=== PATIENT | male | born 1995 | race Native Hawaiian/Other Pacific Islander ===

== ENCOUNTER 2017-06-06 01:16 | Emergency (ER) | payer OTHER ==
[2017-06-06 01:19] VITALS: BP 157/74; PULSE 71; RESP 16; TEMP 98; O2SAT 99
[2017-06-06] MEDS ORDERED: ATEN100T PO (01:55)
--- NOTE | 2017-06-06 02:22 | RADRPT ---
EXAM DATE/TIME: 06/06/2017 02:01 [place] COMPARISON: No previous studies available for comparison. INDICATIONS : Chest pain with nausea. MEDICAL HISTORY : None. SURGICAL HISTORY : Pulmonary artery banding, closure of VSD ENCOUNTER: Initial ACUITY: 1 day PAIN SCORE: 7/10 LOCATION: Bilateral chest FINDINGS: A single view of the chest demonstrates the lungs to be symmetrically aerated without evidence of mas s, or effusion. There is a small faint infiltrate in the right lower lobe. The cardiomediastinal cont ours are unremarkable. Osseous structures are intact. Numerous sternal wires at least 3 of which are fractured CONCLUSION: Small 2 cm area of infiltrate in the right lower lung field possible right lower lobe. A few fractur ed sternal wires. Matthew Cheng MD on June 06, 2017 at 2:20 Board Certified Radiologist. This report was verified electronically.
[2017-06-06 02:35] LABS: AUTOMATED NEUTROPHIL # 3.3 TH/MM3 (1.8-7.7); BASOPHIL # 0.1 TH/MM3 (0-0.2); EOSINOPHIL # 0.5 TH/MM3 (0-0.4); EOSINOPHIL % 7.7 % (0.0-4.0); HEMATOCRIT 41.9 % (39.0-51.0); HEMO FLAGS DIFF FINAL; LYMPH % 31.5 % (9.0-44.0); MEAN CELL VOLUME 81.3 FL (80.0-100.0); MEAN CORPUSCULAR HEMOGLOBIN 27.5 PG (27.0-34.0); MEAN CORPUSCULAR HGB CONC 33.8 % (32.0-36.0); MONO % 8.1 % (0.0-8.0); NEUT % 51.7 % (16.0-70.0); PLATELET COUNT 175 TH/MM3 (150-450); RED BLOOD COUNT 5.15 MIL/MM3 (4.50-5.90); WHITE BLOOD COUNT 6.3 TH/MM3 (4.0-11.0)
[2017-06-06 02:42] LABS: BLOOD, URINE NEG (NEG); GLUCOSE,URINE NEG (NEG); KETONE, URINE NEG (NEG); NITRITE,URINE NEG (NEG); SQUAMOUS EPITHELIAL CELL URINE <1 /hpf (0-5); URINE COLOR YELLOW (YELLW/STRAW)
[2017-06-06 02:43] LABS: COMMENT (UR) CULT NOT INDICATED; CULTURE IF INDICATED CULT NOT INDICATED
--- NOTE | 2017-06-06 02:56 | PD ---
HPI Chief Complaint: GI Complaint Time Seen by Provider: 01:54 Travel History International Travel<30 days: No Contact w/Intl Traveler<30days: No Traveled to known affect area: No History of Present Illness HPI The patient is a 21 year old female who presents to the [facility] emergency department with a history of nausea and vomiting that began approximately one hour prior to arrival. The patient incidentally reports that he has also had over the last 3 days the pain near the right side of his nose when he breathes deeply. He denies having any nasal discharge, fever, postnasal drip, sore throat, cough, or congestion. The patient also incidentally reports that over the last year approximately one time per week for a few hours will have left flank pain. He reports that his urine has appeared to be dark. He denies having any dysuria, urinary frequency, urinary urgency, or hematuria. On review of systems otherwise, the patient denies any neck pain, chest pain, shortness of breath, diarrhea, or neurologic symptoms. The patient reports that he last moved his bowels earlier this evening. He denies having any blood in his stool or black or tarry stools. 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 He has had multiple cardiac surgeries to correct his congenital defects. Cardiovascular Problems: Yes Medical other: Yes Immunizations Current: Yes Past Surgical History Narrative Surgical The patient's past surgical history is significant for multiple cardiac surgeries for repair of congenital defects. Cardiac Surgery: Yes (ventricular septal defect, coarctation of aoarta, subaortic stenosis,) Thoracic Surgery: Yes (resection of subaortic stenosis, aortic valve commissurotomy patch enlargem) Other Surgery: Yes (pulmonary arterial banding, closure of VSD, gor-tyson patch coarctation) Social History Alcohol Use: No Tobacco Use: Yes (5 cigarettes per day) Substance Use: No Allergies-Medications (Allergen,Severity, Reaction): Coded Allergies: No Known Allergies (Unverified , 06/06/17) Reported Meds & Prescriptions Reported Meds & Active Scripts Active Reported Atenolol 100 Mg Tab 100 Mg PO DAILY Review of Systems Except as stated in HPI: all other systems reviewed are Neg General / Constitutional: No: Fever Eyes: No: Visual changes HENT: No: Headaches, Congestion Cardiovascular: No: Chest Pain or Discomfort Respiratory: No: Cough, Shortness of Breath Gastrointestinal: Positive: Nausea, Vomiting, No: Diarrhea, Abdominal Pain, Hematochezia, Constipation, Changes in Bowel Habits, Indigestion, Loss of Appetite Genitourinary: Positive: Flank Pain (left flank pain), Other (dark urine), No : Urgency, Frequency, Dysuria Musculoskeletal: No: Pain Skin: No Rash Neurologic: No: Weakness Psychiatric: No: Depression Endocrine: No: Polydipsia Hematologic/Lymphatic: No: Easy Bruising Physical Exam Narrative General: The patient is a well-developed well-nourished male in no acute distress. Head and Neck exam: Head is normocephalic atraumatic. Eyes: EOMI, pupils are equal round and reactive to light. Nose: Midline septum with pink mucous membranes Mouth: Dentition unremarkable. Moist mucus membranes. Posterior oropharynx is not erythematous. No tonsillar hypertrophy. Uvula midline. Airway patent. Neck: No palpable lymphadenopathy. No nuchal rigidity. No thyromegaly. Cardiovascular: Regular rate and rhythm without murmurs, gallops, or rubs. No pulse deficit to the extremities on simultaneous auscultation and palpation of his radial artery. Lungs: Clear to auscultation bilaterally. No wheezes, rhonchi, or rales. Abdomen: Soft, with reported tenderness on palpation along the suprapubic area, no other tenderness on palpation of the other quadrants of the abdomen. No guarding, rebound, or rigidity. Negative [place] sign. Normal bowel sounds are audible. No tenderness on palpation of McBurney's point. Extremities: No clubbing, cyanosis, or edema. 2+ pulses in all 4 extremities. No calf tenderness on palpation. Back: No spinous process tenderness to palpation. No costovertebral angle tenderness to palpation. Neurologic Exam: Grossly nonfocal. Skin Exam: No rash noted. Intact skin that is warm and dry. Data Data Last Documented VS Vital Signs Date Time Temp Pulse Resp B/P Pulse Ox O2 Delivery O2 Flow Rate FiO2 06/06/17 01:19 98.0 71 16 157/74 99 Room Air Orders Electrocardiogram (06/06/17 01:25) Complete Blood Count With Diff (06/06/17 02:06) Comprehensive Metabolic Panel (06/06/17 02:06) Lipase (06/06/17 02:06) Urinalysis - C+S If Indicated (06/06/17 02:06) Chest, Single Ap (06/06/17 02:06) Iv Access Insert/Monitor (06/06/17 02:06) Ecg Monitoring (06/06/17 02:06) Oximetry (06/06/17 02:06) Magnesium (Mg) (06/06/17 02:07) Sodium Chlorid 0.9% 500 Ml Inj (Ns 500 M (06/06/17 03:45) Ondansetron Inj (Zofran Inj) (06/06/17 03:45) Oral Rehydration (06/06/17 03:38) Labs Laboratory Tests Test 06/06/17 06/06/17 02:20 02:30 White Blood Count 6.3 TH/MM3 Red Blood Count 5.15 MIL/MM3 Hemoglobin 14.1 GM/DL Hematocrit 41.9 % Mean Corpuscular Volume 81.3 FL Mean Corpuscular Hemoglobin 27.5 PG Mean Corpuscular Hemoglobin 33.8 % Concent Red Cell Distribution Width 13.0 % Platelet Count 175 TH/MM3 Mean Platelet Volume 8.8 FL Neutrophils (%) (Auto) 51.7 % Lymphocytes (%) (Auto) 31.5 % Monocytes (%) (Auto) 8.1 % Eosinophils (%) (Auto) 7.7 % Basophils (%) (Auto) 1.0 % Neutrophils # (Auto) 3.3 TH/MM3 Lymphocytes # (Auto) 2.0 TH/MM3 Monocytes # (Auto) 0.5 TH/MM3 Eosinophils # (Auto) 0.5 TH/MM3 Basophils # (Auto) 0.1 TH/MM3 CBC Comment DIFF FINAL Differential Comment Sodium Level 141 MEQ/L Potassium Level 4.1 MEQ/L Chloride Level 106 MEQ/L Carbon Dioxide Level 29.4 MEQ/L Anion Gap 6 MEQ/L Blood Urea Nitrogen 13 MG/DL Creatinine 0.61 MG/DL Estimat Glomerular Filtration 167 ML/MIN Rate Random Glucose 81 MG/DL Calcium Level 8.3 MG/DL Magnesium Level 1.8 MG/DL Total Bilirubin 0.4 MG/DL Aspartate Amino Transf 14 U/L (AST/SGOT) Alanine Aminotransferase 16 U/L (ALT/SGPT) Alkaline Phosphatase 45 U/L Total Protein 6.4 GM/DL Albumin 3.4 GM/DL Lipase 193 U/L Urine Color YELLOW Urine Turbidity CLEAR Urine pH 6.0 Urine Specific [place] 1.014 Urine Protein NEG mg/dL Urine Glucose (UA) NEG mg/dL Urine Ketones NEG mg/dL Urine Occult Blood NEG Urine Nitrite NEG Urine Bilirubin NEG Urine Urobilinogen LESS THAN 2.0 MG/DL Urine Leukocyte Esterase NEG Urine RBC LESS THAN 1 /hpf Urine WBC 1 /hpf Urine Squamous Epithelial <1 /hpf Cells Microscopic Urinalysis Comment CULT NOT INDICATED MDM Medical Decision Making Medical Screen Exam Complete: Yes Emergency Medical Condition: Yes Medical Record Reviewed: Yes Interpretation(s) Last Impressions Chest X-Ray 06/06/17 0206 Signed Impressions: Service Date/Time: Tuesday, June 06, 2017 02:01 - CONCLUSION: Small 2 cm area of infiltrate in the right lower lung field possible right lower lobe. A few fractured sternal wires. Matthew Cheng MD Differential Diagnosis Viral syndrome, versus gastroenteritis, versus electrolyte derangements, versus dehydration, versus urinary tract infection Narrative Course During the course of the patients emergency department visit, the patients history, examination, and differential diagnosis were reviewed with the patient. The patient had IV access obtained and blood work sent for analysis. The patient was placed on a monitor and storage bin tender with oximetry and blood pressure monitoring. The patient was initially provided normal saline IV fluids, Zofran 4 mg IV for nausea. The patients laboratory studies were reviewed and remarkable for a white count of 6.3, hemoglobin 14.1, platelets and 75 with 8.1 monocytes, CMP is remarkable for calcium of 8.3, magnesium 1.8, AST 14, lipase 193 Radiology studies were reviewed and remarkable for a chest x-ray that shows small 2 cm area of infiltrate in the right lower lung field, possibly the right lower lobe, a few fractured sternal wires. The patient will be discharged home with a prescription for antibiotic, nausea medication. The patient is resting comfortably and feels better, is alert and in no distress. The patients results and examination findings were discussed with the patient. The repeat examination is unremarkable and benign. The history, exam, diagnostic testing, and current condition do not suggest any significant pathology to warrant further testing, continued ED treatment, admission, or surgical evaluation at this point. The vital signs have been stable. The patient does not have uncontrollable pain, intractable vomiting, or other significant symptoms. The patient's condition is stable and appropriate for discharge. The patient will pursue further outpatient evaluation with a primary care physician or other designated or consulting physician as indicated in the discharge instructions. The patient expressed understanding and was agreeable with this plan. Diagnosis Primary Impression: Lung infiltrate Additional Impression: Vomiting Qualified Code: R11.2 - Non-intractable vomiting with nausea, unspecified vomiting type Referrals: Primary Care Physician 2 days Patient Instructions: Acute Nausea and Vomiting (ED), Bacterial Pneumonia (ED) , General Instructions Med/Other Pt SpecificInfo: Prescription(s) given Scripts Promethazine (Phenergan)25 Mg [id number] Mg PO Q8HR PRN (NAUSEA OR VOMITING) #7 TAB Ref 0 Prov:Lyssa Cedeno MD 06/06/17 Azithromycin 250 Mg [id number] Mg PO DIRECTED #6 TAB Ref 0 Take 2 tabs (500 mg) on day 1 then 1 tab daily x 4 days. Prov:Lyssa Cedeno MD 06/06/17 Disposition: 01 DISCHARGE HOME Condition: Stable Lyssa Cedeno MD Jun 06, 2017 02:56
[2017-06-06 02:57] LABS: ALT (GPT) 16 U/L (12-78); ANION GAP 6 MEQ/L (5-15); AST (GOT) 14 U/L (15-37); BICARBONATE 29.4 MEQ/L (21.0-32.0); BLOOD UREA NITROGEN 13 MG/DL (7-18); CHLORIDE 106 MEQ/L (98-107); GLOMERULAR FILTRATION RATE 167 ML/MIN (>89); POTASSIUM 4.1 MEQ/L (3.5-5.1); SODIUM (NA) 141 MEQ/L (136-145)
[2017-06-06 02:59] LABS: ALKALINE PHOSPHATASE 45 U/L (45-117); TOTAL BILIRUBIN ADULT 0.4 MG/DL (0.2-1.0)
[2017-06-06] MEDS ORDERED: ONDANSETRON HCL 4 MG/2 ML VIAL IV PUSH ONE (03:45)
[2017-06-06] MEDS ORDERED: SODIUM CHLORID 0.9% 500 ML INJ 500 ML IV ONE (03:45)
[2017-06-06] MEDS ORDERED: PROM25TA10 PO (04:56)
[2017-06-06] MEDS ORDERED: AZIT250T3 PO (04:56)
[2017-06-06 05:00] VITALS: BP 126/59
--- NOTE | 2017-06-06 13:53 | EKG ---
Date Performed: 06/06/2017 Time Performed: 01:28:45 PTAGE: 21 years EKG: Sinus rhythm WITH OCCASIONAL VENTRICULAR PREMATURE COMPLEXES WITH OCCASIONAL SUPRAVENTRICULAR PREMATURE COMPLEXES BORDERLINE LEFT AXIS DEVIATION RIGHT BUNDLE BRANCH BLOCK ABNORMAL ECG CLINICAL CORRELATION RECOMMEND ED NO PREVIOUS TRACING DOCTOR: Richard Connell Interpretating Date/Time 06/06/2017 13:52:39
== END 2017-06-06 05:37 | disposition home or self-care (01) ==
LOC: NEPE 01:16
DX: R91.8 Other nonspecific abnormal finding of lung field (principal); R11.2 Nausea with vomiting, unspecified; Q21.0 Ventricular septal defect; Q25.1 Coarctation of aorta; I35.0 Nonrheumatic aortic (valve) stenosis; I45.10 Unspecified right bundle-branch block; R94.31 Abnormal electrocardiogram [ECG] [EKG]; F17.210 Nicotine dependence, cigarettes, uncomplicated; Z79.899 Other long term (current) drug therapy
CPT/HCPCS: 71010; 80053; 81001; 83690; 83735; 85025; 93005; 96374; 99285; J2405; J7040